=== PATIENT | female | born 1995 | race Caucasian/White ===

== ENCOUNTER 2022-07-10 18:19 | Emergency (ER) | payer OTHER ==
[~2022-07-10] VITALS: Ht 154.9 cm; Wt 70.0 kg
[2022-07-10] MEDS ORDERED: epiNEPHrine 1 mg/ml inj IM STA (18:33)
[2022-07-10] MEDS ORDERED: methylPREDNISolone sod succ 125mg/2ml vial IV ONE (18:35)
[2022-07-10] MEDS ORDERED: famotidine/PF 10 mg/ml inj IV ONE (18:35)
[2022-07-10] MEDS ORDERED: OMEP10CA5 PO (18:54)
[2022-07-10 19:40] LABS: URINE HCG NEGATIVE (NEG)
[2022-07-10] MEDS ORDERED: EPIN0.3P3 IM (22:20)
[2022-07-10] MEDS ORDERED: PRED20TA PO (22:20)
--- NOTE | 2022-07-10 22:21 | NUR ---
Patients hives have completely resolved. States her breathing is easier and tongue is no longer swollen.
[2022-07-10 22:39] VITALS: BP 111/74
== END 2022-07-10 22:41 | disposition home or self-care (01) ==
LOC: ER 18:23
DX: T78.40XA Allergy, unspecified, initial encounter (principal); F17.200 Nicotine dependence, unspecified, uncomplicated; Z79.899 Other long term (current) drug therapy
CPT/HCPCS: 81025; 93005; 96372; 96374; 96375; 99285; J0171; J2930; J3490